=== PATIENT | male | born 1995 | race Caucasian/White ===

== ENCOUNTER 2025-01-28 08:10 | Emergency (ER) | payer BC, SELFPAY ==
[2025-01-28 08:30] VITALS: BP 112/79; PULSE 86; RESP 16; TEMP 36.1; O2SAT 100
[2025-01-28 08:46] LABS: EDCOVIDSCREEN Negative (Negative); EDINFLUASCREEN Negative (Negative); EDINFLUBSCREEN Negative (Negative); EDSTREPNEGPOS1 Positive (Negative)
--- NOTE | 2025-01-28 08:51 | ED_ITS ---
HPI - URI/Sore Throat General Chief Complaint: Upper Respiratory Infection Stated Complaint: URI Symptoms Time Seen by Provider: 01/28/25 08:35 Source: patient and RN notes reviewed Mode of arrival: ambulatory Limitations: no limitations History of Present Illness HPI Narrative: 29-year-old male presents Express Care complaining of cough, congestion, sore throat, body aches, fatigue, fevers for approximately 2 weeks. Patient thought symptoms were any better and in the got significantly worse over the last few days. Patient denies any chest pain, difficulty breathing, nausea, vomiting, diarrhea, chills, earache, or any other symptoms. Patient has been taking Motrin to help with symptoms. She denies any significant past medical history. Related Data Allergies Allergy/AdvReac Type Severity Reaction Status Date / Time Penicillins Allergy Unknown Verified 01/28/25 08:31 Review of Systems Review of Systems: CONSTITUTIONAL: Positive for fevers or body aches. Negative for chills, or sweats. EYES: Denies visual changes, redness, or discharge. ENT: Positive for congestion, sore throat. Negative for rhinorrhea or otalgia. CARDIOVASCULAR: Denies chest pain, palpitations, or edema. RESPIRATORY: Positive for cough. Negative for dyspnea. GASTROINTESTINAL: Denies abdominal pain, nausea, vomiting, or diarrhea. GENITOURINARY: Denies dysuria or hematuria. SKIN: Denies rash or itching. MUSCULOSKELETAL: Denies back pain, joint pain, or myalgia. NEUROLOGIC: Denies headache, numbness, or weakness. PSYCHIATRIC: Denies anxiety or depression. All other systems reviewed are negative, except as documented in HPI. PMFSH Comments At the time of my signature, I reviewed and agree with the nursing past medical, surgical, social, and family history. There is no relevant family history pertinent to the patient complaint. Exam Narrative: GENERAL: This is a well-nourished, well-developed adult, in no apparent distress. They are non ill-appearing, nontoxic appearing. HEAD: normocephalic, atraumatic. EYES: Sclera clear/white. Vision is grossly intact. Conjunctiva normal bilater ally. Extraocular movements intact. EARS: External ears normal, auditory canals clear and without drainage, TMs without erythema or perforation. Hearing grossly intact. NOSE: External nose normal with no obvious nasal discharge, nasal turbinates erythematous, no rhinorrhea. THROAT: Mucous membranes moist, posterior pharynx erythematous without exudate. Uvula is midline. Postnasal drip present. NECK: Neck supple, non-tender without lymphadenopathy, masses or thyromegaly. CARDIOVASCULAR: Regular rate and rhythm without murmurs, gallops, or rubs. RESPIRATORY: Clear to auscultation. Breath sounds equal bilaterally. No wheezes, rales, or rhonchi. SKIN: warm, Dry, intact with no suspicious lesions or rash, good texture and turgor. NEURO: awake, alert, and oriented to person, place and time. There were no obvious focal neurologic abnormalities. EXTREMITIES: No joint tenderness, effusion, or edema noted. BACK: Nontender without deformity. Course Course Emergency Course: Portions of this record may have been created with voice recognition software Level of Care: Express Care Visit Vital Signs Vital signs: Vital Signs Temperature 96.9 F L 01/28/25 08:30 Pulse Rate 86 01/28/25 08:30 Respiratory Rate 16 01/28/25 08:30 Blood Pressure 112/79 01/28/25 08:30 Pulse Oximetry 100 01/28/25 08:30 Oxygen Delivery Room Air 01/28/25 08:30 Temperature 96.9 F L 01/28/25 08:30 Pulse Rate 86 01/28/25 08:30 Respiratory Rate 16 01/28/25 08:30 Blood Pressure 112/79 01/28/25 08:30 Pulse Oximetry 100 01/28/25 08:30 Oxygen Delivery Room Air 01/28/25 08:30 MDM - URI/Sore Throat MDM Narrative Medical decision making narrative: Rapid strep positive. Fluid COVID are negative. Patient likely also has a sinus infection given length of symptoms and presenting illness. Will treat with cefdinir. Patient has an allergy to penicillins, he was told as a child, he denies any anaphylactic reaction to penicillins. Will also prescribe benzonatate as needed for cough. Discussed physical exam findings. Advised supportive measures and signs/symptoms to go to the ER. Pt is appropriate for outpt treatment and f/u. Differential Diagnosis Differential diagnosis: Likely upper respiratory infection, sinusitis, viral infection, bronchitis and pharyngitis Lab Data Attestation: I reviewed the patient's lab results. Labs: Lab Results 01/28/25 Range/Units 08:43 POC Influenza A Ag Negative (Negative) POC Influenza B Ag Negative (Negative) POC SARS CoV-2 Ag Negative (Negative) POC Grp A Strep Screen Positive (Negative) Discharge Plan Discharge Clinical Impression: Sinusitis Qualifiers: Sinusitis location: unspecified location Chronicity: acute Recurrence: non- recurrent Qualified Code(s): J01.90 - Acute sinusitis, unspecified Pharyngitis Qualifiers: Pharyngitis/tonsillitis etiology: streptococcus Qualified Code(s): J02.0 - Streptococcal pharyngitis Patient Disposition: Home Condition: Stable Instructions: Antibiotic Form, Sinusitis (ED), Strep Throat (ED) Additional Instructions: You tested positive for strep throat. ??You will be contagious for 24 hours after starting the antibiotic. ?After 24 hours on antibiotics throw tooth brush away and start using a new one. Wash your sheets and cup/water bottle that is used daily. Do not share drinks. Take the antibiotics as directed and complete the course even if you start to feel better. You may use a Neti pot saline rinse 3 times a day with lukewarm distilled water Continue to take Tylenol or Motrin for pain. Follow instructions on the bottle. Take benzonatate tablets as needed for cough. Use a humidifier or vaporizer at night. Drink plenty of water. 8-10 glasses per day. Use flonase 2 times per day for 5 days then as needed Take mucinex 2 times per day and be sure to take with 8oz of water. Follow up with Primary provider in 3-5 days Please go to the ER if he develops any difficulty breathing, nausea, vomiting, chest pains, worsening symptoms, or any other concerns Patient Language: Lithuanian Prescriptions: New cefdinir 300 mg capsule 600 mg PO DAILY 10 Days Qty: 20 0RF benzonatate 100 mg capsule 100 mg PO TID PRN (Reason: cough) Qty: 20 0RF Follow-up/Referrals: UNKNOWN,DOCTOR [Primary Care Provider] Time of Disposition: 08:48
== END 2025-01-28 08:55 | disposition home or self-care (01) ==
DX: J01.90 Acute sinusitis, unspecified (principal); J02.0 Streptococcal pharyngitis; Z20.822 Contact with and (suspected) exposure to COVID-19
CPT/HCPCS: 87426; 87804; 87880; 99203; G0463

== ENCOUNTER 2025-03-02 08:13 | Emergency (ER) | payer BC, SELFPAY ==
--- NOTE | 2025-03-02 08:14 | ED.URI ---
HPI - URI/Sore Throat General Chief Complaint: Upper Respiratory Infection Stated Complaint: Vomiting/Fever Time Seen by Provider: 03/02/25 08:13 Source: patient Mode of arrival: ambulatory Limitations: no limitations History of Present Illness HPI Narrative: Adam is a 29-year-old male patient presenting to the clinic today with complaints fever, cough, nasal congestion, body aches, fatigue, and vomiting x1 day. He reports his highest temperature was a 106? F. Has been taking DayQuil, NyQuil, Tylenol, and Motrin for his symptoms. Rates body aches as 6/10 currently. Denies sore throat. Related Data Allergies Allergy/AdvReac Type Severity Reaction Status Date / Time Penicillins Allergy Unknown Verified 03/02/25 08:25 Review of Systems Review of Systems: Pertinent positives per HPI. Patient denies any rash, headache, visual changes, dizziness, shortness of breath, chest pain, palpitations, diarrhea, constipation, abdominal pain, or any urinary issues. PMFSH Comments At the time of my signature, I reviewed and agree with the nursing past medical, surgical, social, and family history. There is no relevant family history pertinent to the patient complaint. Exam Narrative: General: Well-developed, well nourished, acutely ill-appearing Head: Normocephalic, atraumatic Eyes: Pupils equally round and reactive to light bilaterally, EOM intact, sclera and conjunctive clear, no discharge, lids normal Ears: TMs intact and clear, ear canals ceruminous, no drainage, grossly hearing normal. Nose: Nares patent, clear nasal discharge, mild inflammation, no sinus tenderness. Mouth: Oral pharynx red without lesions or masses, good dentition, MMM. PND Neck: Supple, trachea midline, no enlargement of anterior or posterior cervical nodes, no thyroid masses or goiter palpable. Cardio: Regular rate and rhythm, s1 and s2 normal, no murmur appreciated. Resp: Clear to auscultation bilaterally, no rhonchi, rales, wheezing or rubs Course Course Emergency Course: Portions of this record may have been created with voice recognition software. Level of Care: Express Care Visit Vital Signs Vital signs: Vital Signs Temperature 39.1 C H 03/02/25 08:17 Pulse Rate 104 H 03/02/25 08:17 Respiratory Rate 20 03/02/25 08:17 Blood Pressure 128/68 03/02/25 08:17 Pulse Oximetry 99 03/02/25 08:17 Oxygen Delivery Room Air 03/02/25 08:17 Temperature 39.1 C H 03/02/25 08:17 Pulse Rate 104 H 03/02/25 08:17 Respiratory Rate 20 03/02/25 08:17 Blood Pressure 128/68 03/02/25 08:17 Pulse Oximetry 99 03/02/25 08:17 Oxygen Delivery Room Air 03/02/25 08:17 Vital signs reviewed MDM - URI/Sore Throat MDM Narrative Medical decision making narrative: At the time of visit patient is resting comfortably on the exam table. Patient appears to be nontoxic. Complaints fever, cough, nasal congestion, body aches, fatigue, and vomiting x1 day. He reports his highest temperature was a 106? F. Has been taking DayQuil, NyQuil, Tylenol, and Motrin for his symptoms. Rates body aches as 6/10 currently. Denies sore throat. On exam patient has ceruminous ear canals with clear intact TMs, clear nasal drainage with mild inflammation of the anterior turbinates, oral pharynx mildly red with postnasal drip, no cervical lymphadenopathy, lung sounds are clear, heart rates tachycardic- regular rate and rhythm, Patient is febrile in the clinic today and heart rates 104. Blood pressure was 128/68. Oxygen saturation 99% on room air. Labs: COVID and influenza testing was performed. Influenza testing was negative. COVID testing was positive. Plan: Patient has COVID-19. Patient is having mild-moderate symptoms. Denies any shortness of breath this time. Offered Paxlovid-risk and benefits of this medicine was reviewed with the patient he voiced understanding and would like this medication prescribed. Will also send in prescription for Zofran for nausea. Work note was given. Supportive measures were discussed with the patient and they voiced understanding discharge instructions and agrees to treatment plan. Return precautions reviewed Differential Diagnosis Differential diagnosis: Likely upper respiratory infection, otitis media, sinusitis, viral infection, bronchitis, influenza, pharyngitis and other (COVID) Lab Data Labs: Lab Results 03/02/25 Range/Units 08:27 POC SARS CoV-2 Ag Positive (Negative) Discharge Plan Discharge Clinical Impression: COVID-19 Patient Disposition: Home Condition: Stable Instructions: Antibiotic Form, How to Recover from COVID-19 at Home (ED) Additional Instructions: Take prescription medications only as prescribed-Paxlovid May take Dayquil/Nyquil for your symptoms as directed. Increase fluids and stay well hydrated May take Tylenol or motrin as directed on bottle for pain/fever May use Flonase 1 spray in each nare daily May take OTC antihistamines such as Zyrtec or Claritin daily as directed on bottle May apply Vicks vapor rub to chest to open sinuses Sinus rinses for congestion Cepacol spray, cough drops, throat lozenges, warm tea with honey/lemon, gargle salt water to soothe throat BRAT diet for diarrhea Clear liquids x 24 hours then advance as tolerated for nausea/vomiting Go to the ED if you develop a worsening in your condition- high fever not controlled by Tylenol or Motrin, dehydration, weakness, lethargy, shortness of breath, or chest pain. Follow up with your PCP in 3-5 days if symptoms persist. Patient Language: Cook Islander Prescriptions: New ondansetron 8 mg tablet,disintegrating 8 mg PO Q8H PRN (Reason: nausea and vomiting) 3 Days Qty: 10 0RF Paxlovid 300 mg (150 mg x 2)-100 mg tablets,dose pack See Rx Instructions PO .COMPLEX Qty: 30 0RF Rx Instructions: take TWO 150 mg tablets of nirmatrelvir with ONE 100 mg tablet of ritonavir twice daily for 5 days Follow-up/Referrals: UNKNOWN,DOCTOR [Non-Staff] Stand Alone Forms: Work/School Release IP Time of Disposition: 08:28 Quality NIHSS Nursing Documentation ED NIHSS nursing documentation: reviewed/agree
[2025-03-02 08:17] VITALS: BP 128/68; PULSE 104; RESP 20; TEMP 39.1; O2SAT 99
[2025-03-02 08:28] LABS: EDCOVIDSCREEN Positive (Negative)
[2025-03-02 08:34] LABS: EDINFLUASCREEN Negative (Negative); EDINFLUBSCREEN Negative (Negative)
== END 2025-03-02 08:38 | disposition home or self-care (01) ==
PROVIDERS: Emergency Provider Nurse Practitioner Family; PCP Internal Medicine
DX: U07.1 COVID-19 (principal)
CPT/HCPCS: 87426; 87804; 99213; G0463

== ENCOUNTER 2025-03-02 10:41 | Emergency (ER) | payer BC, SELFPAY ==
[2025-03-02 10:45] VITALS: BP 106/60; PULSE 106; RESP 20; TEMP 37.3; O2SAT 97
--- NOTE | 2025-03-02 12:59 | ED_ITS ---
HPI - General Adult General Chief complaint: Recheck/Abnormal Lab/Rx Stated complaint: 106 FEVER, COVID+ THIS AM Time Seen by Provider: 03/02/25 13:01 Source: patient Mode of arrival: ambulatory Limitations: no limitations History of Present Illness HPI narrative: Patient is a 29-year-old male who presents the ED with report of a fever. Patient reports he was seen at urgent care this morning and diagnosed with C OVID-19. States he began feeling ill last night with fever, chills, diffuse body pain/aches. Reports last night he had a fever of 106F. States his fever spiked again today after returning home from Urgent Care. States temperature was again was 106.9F. He states he was told to come to the ED if he develops high fevers. He did take Motrin prior to arrival. Temperature upon arrival 99.1F. Denies cough, sob. Related Data Allergies Allergy/AdvReac Type Severity Reaction Status Date / Time Penicillins Allergy Unknown Verified 03/02/25 10:44 Review of Systems Review of Systems: All systems reviewed & are unremarkable except as noted in HPI. All systems reviewed & are unremarkable except as noted in HPI and below Exam Narrative: GENERAL: Mildly ill appearing, obese with BMI 31.7, non-toxic, in no acute distress. HEAD: Normocephalic, atraumatic. RESPIRATORY: Airway patent, respirations nonlabored. Occasional coughing on exam CARDIOVASCULAR: Regular rate and rhythm MUSCULOSKELETAL: Moves all extremities. No gross deformities. SKIN: Warm, dry, normal color. NEURO: A&O X3. Speech clear. Cranial nerves II-XII grossly intact. Steady gait. No ataxic movements. PSYCHIATRIC: Appropriate mood and affect. Normal interaction. Course Vital Signs Vital signs: Vital Signs Temperature 99.1 F 03/02/25 10:45 Pulse Rate 106 H 03/02/25 10:45 Respiratory Rate 20 03/02/25 10:45 Blood Pressure 106/60 03/02/25 10:45 Pulse Oximetry 97 03/02/25 10:45 Temperature 99.1 F 03/02/25 10:45 Pulse Rate 106 H 03/02/25 10:45 Respiratory Rate 20 03/02/25 10:45 Blood Pressure 106/60 03/02/25 10:45 Pulse Oximetry 97 03/02/25 10:45 Medical Decision Making MDM Narrative Medical decision making narrative: Patient diagnosed with COVID-19 today. Prescribed paxlovid at . Reporting fevers at home, however I question the accuracy of patient's thermometer as temperature seems extreme. He did take Motrin prior to arrival and is afebrile here. Advised we expect to see fevers with COVID, to continue Tylenol/ibuprofen around the clock as needed for muscle aches and fevers. Discussed expectant management, additional hypt-pxy-[id number] therapies. Advised to take Paxlovid as prescribed, given strict return precautions. Discharged in stable condition. Medical Records Medical records reviewed: Yes I reviewed the external patient's medical records. Vital Signs Vital Signs: Vital Signs Temperature 99.1 F 03/02/25 10:45 Pulse Rate 106 H 03/02/25 10:45 Respiratory Rate 20 03/02/25 10:45 Blood Pressure 106/60 03/02/25 10:45 Pulse Oximetry 97 03/02/25 10:45 Temperature 99.1 F 03/02/25 10:45 Pulse Rate 106 H 03/02/25 10:45 Respiratory Rate 20 03/02/25 10:45 Blood Pressure 106/60 03/02/25 10:45 Pulse Oximetry 97 03/02/25 10:45 Discharge Plan Discharge Clinical Impression: COVID-19 Patient Disposition: Home Condition: Stable Instructions: Antibiotic Form, COVID-19 (Coronavirus Disease 2019) (ED), How to Recover from COVID-19 at Home (ED) Additional Instructions: Take Paxlovid as prescribed. Isolate at home as you are contagious. Stay well-hydrated at home. Recommend electrolyte rich fluids, Gatorade, Pedialyte, body armor. Utilize Zofran as needed for nausea. Recommend Tylenol and Ibuprofen around the clock for discomfort and/or fevers. You may take 1000 mg of Tylenol and 600 mg of ibuprofen every 6 hours. Recommend dibt-haq-rkemqyb cough and cold medicines for symptom relief, Delsym, Mucinex, DayQuil, NyQuil, Sudafed, Robitussin, TheraFlu. Follow with primary care doctor upon resolution of symptoms. Return to the ED if you experience chest pain, difficulty breathing, unable to keep down food or drink, severe pain, or any other symptoms of concern. Patient Language: Romansh Prescriptions: No Action ondansetron 8 mg tablet,disintegrating 8 mg PO Q8H PRN (Reason: nausea and vomiting) 3 Days Qty: 10 0RF Paxlovid 300 mg (150 mg x 2)-100 mg tablets,dose pack See Rx Instructions PO .COMPLEX Qty: 30 0RF Rx Instructions: take TWO 150 mg tablets of nirmatrelvir with ONE 100 mg tablet of ritonavir twice daily for 5 days Follow-up/Referrals: Bob,Humberto De León MD [Primary Care Provider] Time of Disposition: 13:11
--- OUTSIDE RECORDS SUMMARY | 2025-03-02 14:47 | XMS_ITS | Encounter Summary ---
Author Organization [facility] Address [address] [place] [address] Care Team Providers Care Plastic Bubble Packer Name Role Phone Humberto Rojas MD Primary Care Provider [phone] Reason for Visit * Reason Comments Remote Monitoring Encounter Details Date Type Department Care Team ([facility] st Contact Info) Description 03/02/2025 Telephone [facility] [address] [place] [address] Humberto Rojas MD [address] [place] [address] [address] [place] [address] Remote Monitoring Social History Tobacco Use Types Packs/Day Years Used Date Smoking Tobacco: Never Passive Smoke Exposure: Never Smokeless Tobacco: Never Alcohol Use Standard Drinks/Week Comments Not Currently 0 (1 standard drink = 0.6 oz pur e alcohol) Sex and Gender Information Value Date Recorded Sex Assigned at Not on file Legal Sex Male 2:35 PM CALL CENTER NURSE Gender Identity Not on file Sexual Orientation Not on file documented as of this encounter Miscellaneous Notes * Telephone Encounter - Trudy Trimble LPN - 03/02/2025 9:20 AM CALL CENTER NURSE I have attempted to contact this patient by phone with the following results: spoke with patient. Pt advised to treat symptoms of congestion with OTC cold meds. Treat fever with Tylenol. Rest plenty of fluids. Pt verbalized understanding. [facility] CENTER NURSE * Telephone Encounter - Deborah Estrada RMA - 03/02/2025 9:13 AM CALL CENTER NURSE Copied from [facility] #[id number]. Topic: Patient Reported Outcome Metrics >> Mar 02, 2025 9:10 AM Deborah Tam wrote: Caller Name: Adam Hollins Callback Number: Telephone Information: Call Notes: Caller is reporting that he was seen at the [facility] in [place] this morning 03/02 and tested positive for COVID. Patient has been sick for the past several weeks with digestive and upper respiratory symptoms. Patient is asking what he can take to get to feeling better and is asking to speak with the doctor or on og the nurses CENTER NURSE documented in this encounter Plan of Treatment Upcoming Encounters Date Type Department Care Team (Late st Contact Info) Description 07/09/2025 9:00 AM CDT Office Visit [facility] [id number] [place] [address] Humberto Rojas MD [address] [place] [address] [id number] documented as of this encounter Visit Diagnoses Not on filedocumented in this encounter Additional Health Concerns Assessment Noted Time PHQ-9 Depression Total Score: 3 10/27/19 25 11:06 AM CDT documented as of this encounter Care Teams Plastic Bubble Packer Relationship Specialty Start Date End Date Humberto Rojas MD PCP - General Internal Medicine 03/19/19 documented as of this encounter
--- OUTSIDE RECORDS SUMMARY | 2025-03-02 14:47 | XMS_ITS | Clinical Summary ---
Author Organization [facility] Address [address] [place] [address] Care Team Providers Care Test Director Name Role Phone Humberto Rojas MD Primary Care Provider [phone] Allergies Active Allergy Reactions Criticality Noted Date Comments Amoxicillin Rash Medium 01/25/2015 Medications ALPRAZolam (XANAX) 0.25 mg tabletIndication s:Anxiety state Take 1 Tablet (0.25 mg) by mouth 2 times daily as needed for Anxiety. 30 Tablet 1 10/28/2024 Active Active Problems Patient Care Coordination No te Formatting of this note migh t be different from the original. 07/21/24 Problem Noted Date Diagnosed Date Obesity (BMI 35.0-39.9 without comorbidity) 06/28 Resolved Problems Problem Noted Date Diagnosed Date Resolved Date Atypical chest pain 08/15/2020 07/22/19 25 Notalgia 03/19/2019 03/19/2019 Encounters Date Type Department Care Team Description 03/02/2025 Telephone [facility] [address] [place] [address] Humberto Rojas MD Needs Orders Written 03/02/2025 [facility] [address] [place] [address] Humberto Rojas MD Remote Monitoring 12/01/2024 External Device Data STL ABSTRACTION Provider, Abstract from Last 3 Months Immunizations Immunization Administration Dates Next Due (ADACEL/BOOSTRIX)(10 YR UP) TDAP VACCINE, 0.5ML, IM 09/30/2018 (PFIZER)(12 YR UP) COVID-19 VACCINE - EMERGENCY USE AUTHORIZATION, MRNA, [id number](PF) 30 MCG/0.3 ML IM SUSP 07/19/2020,06/24/2020 INFLUENZA VACCINE QUADRIVALENT 6 MOS UP PF IM Family History Relation Name Status Comments Brother Alive Daughter Alive Father Alive Maternal Grandfather Maternal Grandmother Mother Alive Paternal Grandfather Paternal Grandmother Social History Tobacco Use Types Packs/Day Years Used Date Smoking Tobacco: Never Passive Smoke Exposure: Never Smokeless Tobacco: Never Tobacco Cessation:Counseling Given: No Alcohol Use Standard Drinks/Week Comments Not Currently 0 (1 standard drink = 0.6 oz pur e alcohol) Sex and Gender Information Value Date Recorded Sex Assigned at Not on file Legal Sex Male 2:35 PM LEATHER SPONGER Gender Identity Not on file Sexual Orientation Not on file Last Filed Vital Signs Vital Sign Reading Time Taken Comments Blood Pressure 108/73 10/28/2024 9:51 AM CDT Pulse 77 10/28/2024 9:51 AM CDT Temperature 36.2 C (97.1 F) 07/21/2024 8:49 AM CDT Respiratory Rate - - Oxygen Saturation 96% 10/28/2024 9:51 AM CDT Inhaled Oxygen Concentration - - Weight 117 kg (258 lb) 10/28/2024 9:51 AM CDT Height 188 cm (6' 2) 10/28/2024 9:51 AM CDT Body Mass Index 33.13 10/28/2024 9:51 AM CDT Plan of Treatment Upcoming Encounters Date Type Department Care Team (Late st Contact Info) Description 07/09/2025 9:00 AM CDT Office Visit [facility] [address] [place] [address] Humberto Rojas MD [address] [place] [address] [address] [place] [address] Health Maintenance Due Date Last Done Comments HEPATITIS B VACCINES (1 of 3 - 19+ 3-dose series) 2013 HPV VACCINES (1 - 3-dose SCD M series) 2021 INFLUENZA VACCINE (#1) 2024 03/19/2019 COVID-19 Vaccine (3 - 2024-2 6 season) 2024 07/19/2020, 06/24/2020 DTAP/TDAP/TD VACCINES (2 - T d or Tdap) 09/30/2028 09/30/2018 Preventative Visit- Commercial Completed 0 07/21/2024, 07/22/2023, 08/15/2020, Additional history exists Insurance [facility] BLUE ACCESS/TRUE BLUE PPO Care Teams Test Director Relationship Specialty Start Date End Date Humberto Rojas MD PCP - General Internal Medicine 03/19/19
--- OUTSIDE RECORDS SUMMARY | 2025-03-02 14:47 | XMS_ITS | Clinical Summary ---
Author Organization [address] Address [address] [place] [address] Care Team Providers Care Heavy Equipment Service Technician Name Role Phone Skip Moscoso MD Primary Care Provider [phone] Allergies Active Allergy Reactions Criticality Noted Date Comments Amoxicillin Rash Medium 01/25/2015 Medications benzonatate (TESSALON) 100 mg capsuleIndicati ons:Cough Take 1 capsule (100 mg total) by mouth 3 (three) times a day as needed for cough 42 capsule Active Additional Information Patient not taking.Reported on 09/12/2023 Active Problems No known active problems Surgical History Surgery Date Site/Laterality Comments OTHER SURGICAL HISTORY ACL repair: fused patellar tendon repair. 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 Gender Identity Not on file Sexual Orientation Not on file Last Filed Vital Signs Vital Sign Reading Time Taken Comments Blood Pressure 104/70 12/05/2023 10:42 AM CDT Pulse 74 12/05/2023 10:42 AM CDT Temperature 36.6 C (97.8 F) 12/05/2023 10:42 AM CDT Respiratory Rate 18 12/05/2023 10:42 AM CDT Oxygen Saturation 97% 12/05/2023 10:42 AM CDT Inhaled Oxygen Concentration - - Weight 125.6 kg (277 lb) 12/05/2023 10:42 AM CDT Height 188 cm (6' 2) 12/05/2023 10:42 AM CDT Body Mass Index 35.56 12/05/2023 10:42 AM CDT Plan of Treatment Health Maintenance Due Date Last Done Comments Depression Screening 1994 Hepatitis C Screening 1994 Varicella Vaccines (1 of 2 - 13+ 2-dose series) 2007 Hepatitis B Screening 2012 Regular Well Visit/Exam 18-64 2012 HPV Vaccines (1 - 3-dose SCD M series) 2021 Covid-19 Vaccine ( - 2024-2 6 season) 2024 05/01/2021, 07/19/2020, 06/24/2020 Influenza Vaccine (#1) 2024 03/19/2019 DTaP/Tdap/Td Vaccine (2 - Td or Tdap) 09/30/2028 09/30/2018 Pneumococcal vaccine <65 Aged Out No longer eligible based on patient's age to complete this topic Insurance [facility]ICE [facility] [place] Care Teams Heavy Equipment Service Technician Relationship Specialty Start Date End Date Skip Moscoso MD [address] [place] [address] PCP - General 07/20/08
--- OUTSIDE RECORDS SUMMARY | 2025-03-02 14:47 | XMS_ITS | Encounter Summary ---
Author Organization [facility] Address [address] [place] [address] Care Team Providers Care Quality Control Manager Name Role Phone Humberto Rojas MD Primary Care Provider Reason for Visit * Reason Comments Needs Orders Written Encounter Details Date Type Department Care Team (Late st Contact Info) Description 03/02/2025 Telephone [facility] Primary Care [address] [place] [address] Humberto Rojas MD [address] [place] [address] [address] [place] [address] Needs Orders Written Social History Tobacco Use Types Packs/Day Years Used Date Smoking Tobacco: Never Passive Smoke Exposure: Never Smokeless Tobacco: Never Alcohol Use Standard Drinks/Week Comments Not Currently 0 (1 standard drink = 0.6 oz pur e alcohol) Sex and Gender Information Value Date Recorded Sex Assigned at Not on file 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 Topic: CPA Information Request - Order or Referral Request >> Mar 02, 2025 2:19 PM Kacey Walsh wrote: Caller Name: claire martinez Patient/Caregiver Callback Number: [phone] Call Notes: Patient is wanting to get testing done to make sure to check his bloodwork. Patient would like a callback once submitted. Caller is requesting: New Lab Order Order: bloodwork Reason for Request: n/a ER ASSEMBLER documented in this encounter Plan of Treatment Upcoming Encounters Date Type Department Care Team (Late st Contact Info) Description 07/09/2025 9:00 AM CDT Office Visit [facility] Primary Care [address] [place] [address] Humberto Rojas MD [address] [place] [address] [address] [place] [address] documented as of this encounter Visit Diagnoses Not on filedocumented in this encounter Additional Health Concerns Assessment Noted Time PHQ-9 Depression Total Score: 3 10/27/19 25 11:06 AM CDT documented as of this encounter Care Teams Quality Control Manager Relationship Specialty Start Date End Date Humberto Rojas MD PCP - General Internal Medicine 03/19/19 documented as of this encounter
--- OUTSIDE RECORDS SUMMARY | 2025-03-02 14:47 | XMS_ITS | Clinical Summary ---
Author Organization [facility] Address [address] [place] [address] Phone Care Team Providers Care Manufacturing Controls Engineer Name Role Phone Montse Mcqueenelle PAC Primary Care Pro vider Allergies No known active allergies Medications No known medications Active Problems No known active problems Immunizations Immunization Administration Dates Next Due Influenza Vaccine, Quadrivalent, PF 03/19/2019 TDAP Vaccine 09/30/2018 Family History Medical History Relation Name Comments No Known Problems Father Cancer Mother Relation Name Status Comments Father Alive Mother Alive Social History Tobacco Use Types Packs/Day Years Used Date Smoking Tobacco: Never Smokeless Tobacco: Never Tobacco Cessation:Counseling Given: No Alcohol Use Standard Drinks/Week Comments No 0 (1 standard drink = 0.6 oz pur e alcohol) PHQ-2 Answer Date Recorded Total Score - Questions 1-9 0 06/27 Education Answer Date Recorded What is the highest level of school you have completed or the highest degree you have received? Bachelor's degree (e.g., BA, AB, BS) 02/13/2023 Sexually Active Control Partners Comments Yes Female Sex and Gender Information Value Date Recorded Sex Assigned at Not on file Legal Sex Male 12:35 AM CDT Gender Identity Not on file Sexual Orientation Not on file Last Filed Vital Signs Vital Sign Reading Time Taken Comments Blood Pressure 124/78 02/13/2023 11:27 AM CDT Pulse 85 02/13/2023 11:27 AM CDT Temperature 36.1 C (97 F) 02/13/2023 11:27 AM CDT Respiratory Rate 12 02/13/2023 11:27 AM CDT Oxygen Saturation 96% 02/13/2023 11:27 AM CDT Inhaled Oxygen Concentration - - Weight 125.2 kg (276 lb) 02/13/2023 11:27 AM CDT Height 188 cm (6' 2) 02/13/2023 11:27 AM CDT Body Mass Index 35.44 02/13/2023 11:27 AM CDT Plan of Treatment Health Maintenance Due Date Last Done Comments Hepatitis C Virus (HCV) Screening 1994 Hepatitis B Immunization (1 of 3 - 19+ 3-dose series) 2013 Human Papillomavirus (HPV) Immunization (1 - 3-dose SCDM series) 2021 Influenza Immunization (#1) 2024 03/19/2019 SARS-COV-2 Immunization ( season) 2024 05/01/2021, 07/19/2020, 06/24/2020 Td Immunization Every 10 Yea rs (Adults With 1 Tdap) 09/30/2028 09/30/2018 Respiratory Syncytial Virus (RSV) Immunization (Adult) (1 - 1-dose 75+ series) 2069 DTaP/Tdap/Td Immunization Discontinued 09/30/2018 Meningococcal Immunization (ACWY) Aged Out No longer eligible based on patient's age to complete this topic Pneumococcal Immunization Combined Aged Out No longer eligible based on patient's age to complete this topic Rotavirus Immunization Aged Out No lo nger eligible based on patient's age to complete this topic Insurance [facility] Care Teams Manufacturing Controls Engineer Relationship Specialty Start Date End Date Montse Mcqueen PAC PCP - General Physician Journeyman Pressman 07/12/21
== END 2025-03-02 13:34 | disposition home or self-care (01) ==
PROVIDERS: Emergency Provider Physician Assistant; PCP Internal Medicine
DX: U07.1 COVID-19 (principal)
CPT/HCPCS: 99281